=== PATIENT | female | born 1990 | race Caucasian/White ===

== ENCOUNTER 2016-07-08 12:43 | Emergency (ER) | payer BC, MEDICAID ==
[2016-07-08 12:45] VITALS: BMI 22.2
[2016-07-08] MEDS ORDERED: Sodium Chloride 0.9% 1,000 ML IV STA (13:09)
[2016-07-08 13:17] VITALS: BP 105/70; PULSE 73; RESP 19; TEMP 97.6; O2SAT 99
--- NOTE | 2016-07-08 13:31 | ED PDOC ---
Arrival/HPI - General Historian: Patient - History of Present Illness Time/Duration: Prior to Arrival Symptom Onset: Sudden Symptom Course: Unchanged <Gustabo Acosta - Last Filed: 07/08/16 16:30> <Richy Moreno - Last Filed: 07/08/16 21:52> - General Chief Complaint: Dizziness/Lightheaded Time Seen by Provider: 07/08/16 12:51 - History of Present Illness Narrative History of Present Illness (Text): 26 F 9 weeks with no pmh presents with near syncope. Pt states that prior to arrival she was walking with her fiance when she suddenly started to feel very weak, dizzy and blurry vision. She denies passing out, or hitting her head. Denies this ever occurring before. She states that she has been eating and drinking well. Denies any fuentes, f/c/, sob, cp, palpitations, abd pain, n/v/d, urinary changes. (Gustabo Acosta) Past Medical History - Provider Review Nursing Documentation Reviewed: Yes - Infectious Disease Hx of Infectious Diseases: None - Past Medical History Past Medical History: No Previous - Cardiac Hx Cardiac Disorders: No Hx Pacemaker: No - Neurological Hx Paralysis: No - Hematological/Oncological Hx Blood Transfusions: No - Musculoskeletal/Rheumatological Hx Musculoskeletal Disorders: No - Psychiatric Hx Emotional Abuse: No Hx Physical Abuse: No Hx Substance Use: No - Past Surgical History Past Surgical History: No Previous - Surgical History Hx Eye Surgery: Yes (R eye) Other/Comment: 1 vaginal - Anesthesia Hx Anesthesia: Yes Hx Anesthesia Reactions: No Hx Malignant Hyperthermia: No - Suicidal Assessment Feels Threatened In Home Enviroment: No <Gustabo Acosta - Last Filed: 07/08/16 16:30> Family/Social History - Physician Review Nursing Documentation Reviewed: Yes Family/Social History: No Known Family HX Smoking Status: Never Smoked Hx Alcohol Use: No (SOCIAL) Hx Substance Use: No Hx Substance Use Treatment: No <Gustabo Acosta - Last Filed: 07/08/16 16:30> Allergies/Home Meds <Gustabo Acosta - Last Filed: 07/08/16 16:30> <Richy Moreno - Last Filed: 07/08/16 21:52> Allergies/Adverse Reactions: Allergies No Known Allergies Allergy (Verified 07/15/14 07:51) Home Medications: Home Meds Medication Instructions Recorded Confirmed Vit No.126/Iron/Folic 1 each PO DAILY 07/08/16 07/08/16 [Classic Tablet] Review of Systems - Physician Review All systems were reviewed & negative as marked: Yes - Review of Systems Constitutional: Fatigue Eyes: Vision Changes (blurry vision) Respiratory: absent: SOB Cardiovascular: absent: Chest Pain, Palpitations Gastrointestinal: absent: Abdominal Pain Neurological: Dizziness. absent: Headache <Gustabo Acosta - Last Filed: 07/08/16 16:30> Physical Exam Vital Signs Reviewed: Yes Temperature: Afebrile Blood Pressure: Normal Pulse: Regular Respiratory Rate: Normal Appearance: Positive for: Well-Appearing, Non-Toxic, Comfortable Pain Distress: None Mental Status: Positive for: Alert and Oriented X 3 - Systems Exam Head: Present: Atraumatic, Normocephalic Pupils: Present: PERRL Extroacular Muscles: Present: EOMI Conjunctiva: Present: Normal Mouth: Present: Moist Mucous Membranes Neck: Present: Normal Range of Motion Respiratory/Chest: Present: Clear to Auscultation, Good Air Exchange. No: Respiratory Distress, Accessory Muscle Use Cardiovascular: Present: Regular Rate and Rhythm, Normal S1, S2. No: Murmurs Abdomen: Present: Normal Bowel Sounds. No: Tenderness, Distention, Peritoneal Signs Upper Extremity: Present: Normal Inspection. No: Cyanosis, Edema Lower Extremity: Present: Normal Inspection. No: Edema Neurological: Present: GCS=15, CN II-XII Intact, Speech Normal Skin: Present: Warm, Dry, Normal Color. No: Rashes Psychiatric: Present: Alert, Oriented x 3, Normal Insight, Normal Concentration <Gustabo Acosta - Last Filed: 07/08/16 16:30> Medical Decision Making <Gustabo Acosta - Last Filed: 07/08/16 16:30> <Richy Moreno - Last Filed: 07/08/16 21:52> ED Course and Treatment: Impression: 26 F 9 weeks with no pmh presents with near syncope. Differential Diagnosis included but are not limited to: Dehydration vs unlikely vasovagal / cardiac Plan: - CBC, CMP - IVP NS 1L bolus - Reassess and disposition Progress Notes: 07/08/16 13:34 Pt currently asymptomatic. Hemodynamically stable. Resting in bed comfortably. 07/08/16 14:01 Ordered transvaginal US 07/08/16 14:45 EKG Ordered reviewed and independently interpreted the EKG Rate: 69 BPM Rythm: NSR Interpretation: No ST segment elevation or depression, no T wave iinversions, normal intervals. Comparison: none 07/08/16 14:47 Ordered Orthostatic Hypotension 07/08/16 15:35 Orthostatics: Lyin/66, sitting, 119/72, standing 116/68 07/08/16 15:53 Transvaginal US - single live intrauterine gestation of 8 weeks 6 days gestational age. No subchorionic hemorrhage, HR 140, otherwise unremarkable exam. (Gustabo Acosta) 07/08/16 15:43 Patient seen and evaluated with medical officer. Patient reports NO abdominal pain or vaginal bleeding currently. States to me she occasional gets lower abdominal "cramp" but none currently. On exam, no chest pain or shortness of breath. No neuro symptoms. No pleuritic pain. No calf pain. No diaphoresis or hypoxia noted. Patient denies any low back pain. She has reported nausea throughout her early . Serial exams in ED patient has remained neurovascularly intact, no tachycardia. NOT ORTHOSTATIC on re-examination. Suspect possible vagal episode as patient with rapid resolution of symptoms and currently asymptomatic with no motor or sensory deficits, no headache or chest pain or sob. Patient Seen With Resident: In agreement with resident note which contains more details about the patient. Patient was seen and evaluated with resident. Came up with plan and treatment together. (Richy Moreno) - Lab Interpretations Lab Results: 07/08/16 13:20 07/08/16 13:20 Lab Results 07/08/16 14:11: Beta HCG, Quant [id number] H 07/08/16 14:05: Urine Color Yellow, Urine Appearance Clear, Urine pH 6.0, Ur Specific [place] >= 1.030, Urine Protein 30 H, Urine Glucose (UA) Negative, Urine Ketones Negative, Urine Blood Negative, Urine Nitrate Negative, Urine Bilirubin Negative, Urine Urobilinogen 0.2, Ur Leukocyte Esterase Negative, Urine RBC Negative, Urine WBC 1 - 3, Ur Epithelial Cells 3 - 4, Urine Bacteria Small 07/08/16 13:20: Sodium 137, Potassium 4.0, Chloride 104, Carbon Dioxide 24, Anion Gap 13, BUN 8, Creatinine 0.6, Est GFR ( Amer) > 60, Est GFR (Non- Af Amer) > 60, Random Glucose 83, Calcium 9.3, Total Bilirubin 0.5, AST 19, ALT 29, Alkaline Phosphatase 44, Total Protein 8.0, Albumin 4.4, Globulin 3.5, Albumin/Globulin Ratio 1.3 07/08/16 13:20: WBC 8.8 D, RBC 4.06, Hgb 12.0, Hct 34.6 L, MCV 85.2, MCH 29.6, MCHC 34.7, RDW 13.6, Plt Count 301, MPV 9.5, Gran % 78.4 H, Lymph % (Auto) 14.4 L, [place] % (Auto) 6.5 H, Eos % (Auto) 0.5 L, Baso % (Auto) 0.2, Gran # 6.86 H, Lymph # 1.3, Love # 0.6, Eos # 0.0, Baso # 0.02 - RAD Interpretation Radiology Orders: 07/08/16 14:01 OB TRANSVAGINAL [US] Stat - Medication Orders Current Medication Orders: Discontinued Medications Sodium Chloride (Sodium Chloride 0.9%) 1,000 mls @ 999 mls/hr IV .Q1H1M STA Stop: 07/08/16 14:09 Last Admin: 07/08/16 13:30 Dose: 999 mls/hr - PA / WEATHERIZATION INSTALLER / Resident Statement WES has reviewed & agrees with the documentation as recorded. WES has examined the patient and agrees with the treatment plan. <Richy Moreno - Last Filed: 07/08/16 21:52> Disposition/Present on Arrival - Present on Arrival Any Indicators Present on Arrival: No History of DVT/PE: No History of Uncontrolled Diabetes: No Urinary Catheter: No History of Decub. Ulcer: No History Surgical Site Infection Following: None - Disposition Have Diagnosis and Disposition been Completed?: Yes Disposition Time: 15:55 Patient Plan: Discharge <Gustabo Acosta - Last Filed: 07/08/16 16:30> <Richy Moreno - Last Filed: 07/08/16 21:52> - Disposition Diagnosis: Near syncope Disposition: HOME/ ROUTINE Condition: IMPROVED Additional Instructions: Margot Oropeza, thank you for letting us take care of you today. Your provider was Dr Moreno. You were treated for pre syncope. The emergency medical care you received today was directed at your acute symptoms. If you were prescribed any medication, please fill it and take as directed. It may take several days for your symptoms to resolve. Return to the Emergency Department if your symptoms worsen, do not improve, or if you have any other problems. Please contact your doctor or call one of the physicians/clinics you have been referred to that are listed on the Patient Visit Information form that is included in your discharge packet. Bring any paperwork you were given at discharge with you along with any medications you are taking to your follow up visit. Our treatment cannot replace ongoing medical care by a primary care provider (PCP) outside of the emergency department. Thank you for allowing the [facility] team to be part of your care today. Please follow up with your PMD and ADMISSIONS ASSISTANT with in next 1-2 days. Continue taking your pre vitamins. If your symptom recur or worsen come back to the ED.
[2016-07-08 13:34] LABS: ADD MANUAL DIFF? NO
[2016-07-08 13:41] LABS: BASO # 0.02 K/mm3 (0.0-2.0); BASO % 0.2 % (0.0-3.0); EOS % 0.5 % (1.5-5.0); GRAN # 6.86 (1.4-6.5); GRAN % 78.4 % (50.0-68.0); HEMATOCRIT 34.6 % (36.0-48.0); LYMPH # 1.3 (1.2-3.4); LYMPH % 14.4 % (22.0-35.0); MEAN CELL VOLUME 85.2 fL (80.0-105.0); MEAN CORPUSCULAR HEMOGLOBIN 29.6 pg (25.0-35.0); MEAN CORPUSCULAR HGB CONC 34.7 g/dl (31.0-37.0); MEAN PLATELET VOLUME 9.5 fl (7.0-11.0); MONO # 0.6 (0.1-0.6); MONO % 6.5 % (1.0-6.0); PLATELET COUNT 301 10^3/uL (120.0-450.0); RED CELL DISTRIBUTION WIDTH 13.6 % (11.5-14.5); WHITE BLOOD COUNT 8.8 10^3/ul (4.5-11.0)
[2016-07-08 13:46] LABS: ALB/GLOB RATIO 1.3 (1.1-1.8); ALKALINE PHOSPHATASE 44 U/L (38-133); ALT/SGPT 29 U/L (7-56); AST/SGOT 19 U/L (15-39); BILIRUBIN,TOTAL 0.5 mg/dL (0.2-1.3); BLOOD UREA NITROGEN 8 mg/dL (7-21); CALCIUM 9.3 mg/dL (8.4-10.5); CARBON DIOXIDE 24 mmol/L (21-33); CHLORIDE 104 mmol/L (98-107); GFR AFRICAN-AMERICAN > 60; GLUCOSE,RANDOM 83 mg/dL (70-110); SODIUM 137 mmol/L (132-148)
[2016-07-08 14:18] LABS: URINE BILIRUBIN NEGATIVE (NEGATIVE); URINE BLOOD NEGATIVE (NEGATIVE); URINE GLUCOSE (UA) NEGATIVE (NEGATIVE); URINE KETONE NEGATIVE (NEGATIVE); URINE LEUKOCYTE ESTERASE NEGATIVE Leu/uL (NEGATIVE); URINE PROTEIN 30 mg/dL (<30 mg/dL); URINE UROBILINOGEN 0.2 E.U./dL (<1 E.U./dL)
[2016-07-08 14:22] LABS: URINE APPEARANCE CLEAR (CLEAR); URINE COLOR YELLOW (YELLOW)
[2016-07-08 14:30] LABS: URINE BACTERIA SMALL (NEG); URINE RBC NEGATIVE /hpf (0-2)
--- NOTE | 2016-07-08 15:42 | US ---
PROCEDURE: OB Pelvic Ultrasound HISTORY: COMPARISON: None available. FINDINGS: UTERUS: Single Live intrauterine gestation. CRL equivalent to 9 weeks 3 days gestatioin Gestational sac diameter equivalent to 8 weeks 1 day gestation age (Ultrasound estimated): 8 weeks 6 days Date of delivery (Ultrasound estimated) : 02/11/2017 Heart rate: 140 bpm. Ksenia-gestational hemorrhage: None. Uterus measures 9.8 x 6.1 x 7.3 cm. No mass CERVIX: Long and closed. No cervical abnormality seen. RIGHT OVARY: Not visualized LEFT OVARY: Measures 2.3 x 1.9 x 1.9 cm. No mass. Normal flow. FREE FLUID: None. OTHER FINDINGS: None. IMPRESSION: Single live intrauterine gestation of approximately 8 weeks 6 days gestational age. No subchorionic hemorrhage. heart rate 140. Otherwise unremarkable examination.
--- NOTE | 2016-07-09 01:30 | CARD ---
APPROVED REPORT EKG Measurement Heart [id number] <Conclusion> Normal sinus rhythm Normal ECG
== END 2016-07-08 16:11 | disposition home or self-care (01) ==
LOC: ED 12:43
DX: O26.91 Pregnancy related conditions, unspecified, first trimester (principal); Z3A.09 9 weeks gestation of pregnancy; R55 Syncope and collapse
CPT/HCPCS: 76817; 80053; 81001; 84702; 85025; 93005; 96360; 99283; J7040

== ENCOUNTER 2016-10-16 14:41 | Emergency (ER) | payer BC, MEDICAID ==
[2016-10-16 15:02] VITALS: BMI 24.4
[2016-10-16 15:05] VITALS: TEMP 98.4
[2016-10-16 16:58] LABS: BASO # 0.01 K/mm3 (0.0-2.0); BASO % 0.1 % (0.0-3.0); EOS # 0.1 (0.0-0.7); EOS % 0.7 % (1.5-5.0); GRAN # 6.11 (1.4-6.5); GRAN % 73.1 % (50.0-68.0); HEMATOCRIT 28.8 % (36.0-48.0); LYMPH # 1.5 (1.2-3.4); MEAN CELL VOLUME 85.2 fl (80.0-105.0); MEAN CORPUSCULAR HEMOGLOBIN 27.8 pg (25.0-35.0); MEAN CORPUSCULAR HGB CONC 32.6 g/dl (31.0-37.0); MEAN PLATELET VOLUME 9.1 fl (7.0-11.0); MONO # 0.7 (0.1-0.6); MONO % 8.1 % (1.0-6.0); RED CELL DISTRIBUTION WIDTH 12.9 % (11.5-14.5); WHITE BLOOD COUNT 8.4 10^3/ul (4.5-11.0)
[2016-10-16 17:04] LABS: URINE BILIRUBIN NEGATIVE (NEGATIVE); URINE BLOOD NEGATIVE (NEGATIVE); URINE GLUCOSE (UA) NEGATIVE (NEGATIVE); URINE KETONE NEGATIVE (NEGATIVE); URINE LEUKOCYTE ESTERASE NEGATIVE Leu/uL (NEGATIVE); URINE PROTEIN TRACE mg/dL (<30 mg/dL)
[2016-10-16 17:07] LABS: ALB/GLOB RATIO 1.1 (1.1-1.8); ALKALINE PHOSPHATASE 66 U/L (38-133); ALT/SGPT 27 U/L (7-56); AST/SGOT 21 U/L (15-39); BILIRUBIN,TOTAL 0.3 mg/dL (0.2-1.3); BLOOD UREA NITROGEN 8 mg/dL (7-21); CALCIUM 8.8 mg/dL (8.4-10.5); CARBON DIOXIDE 23 mmol/L (21-33); CHLORIDE 106 mmol/L (98-107); GFR AFRICAN-AMERICAN > 60; GLUCOSE,RANDOM 79 mg/dL (70-110); POTASSIUM 4.4 mmol/L (3.6-5.0); SODIUM 137 mmol/L (132-148); TOTAL PROTEIN 6.8 g/dL (5.8-8.3)
[2016-10-16 17:09] LABS: URINE APPEARANCE CLEAR (CLEAR); URINE COLOR YELLOW (YELLOW)
[2016-10-16 17:10] LABS: URINE RBC 0 - 2 /hpf (0-2); URINE WBC 0 - 2 /hpf (0-6)
[2016-10-16 17:11] LABS: URINE BACTERIA FEW (NEG)
--- NOTE | 2016-10-16 17:59 | US ---
PROCEDURE: Obstetrical ultrasound examination HISTORY: 6 months , 3 days abd pain COMPARISON: 07/08/2016 TECHNIQUE: Transabdominal FINDINGS: Single live intrauterine gestation in cephalic presentation. The heart rate is 151 beats per minute. A grossly normal quantity of amniotic fluid is noted. The amniotic fluid index is 10.4 cm. A normal posterior placenta is identified. There is no evidence of placenta previa. The cervix is closed and measures 5.5 cm in length. biometry yields an ultrasound age of 24 weeks 4 days. The LEXI by ultrasound is 02/01/2017. The EFW is 716.20 g. Limited review of anatomy demonstrates fluid distending the stomach and urinary bladder. The kidneys were not demonstrated. A three-vessel umbilical cord is identified. The anterior abdominal wall is intact. IMPRESSION: Single live intrauterine gestation of approximately 24 weeks 4 days gestational age. The EFW 716.20 g. normal limited anatomic evaluation. Normal amniotic fluid volume. Posterior placenta without evidence of placenta previa. Cervix long and closed. heart rate 151 beats per minute.
--- NOTE | 2016-10-16 18:11 | ED PDOC ---
Addendum entered and electronically signed by Shalya Lopez PA 10/30/16 14 :36: Addendum Addendum: 10/30/16 14:36 Certified letter sent on 10/23/16 Addendum entered and electronically signed by Dorothy Thompson PA-C 10/18/16 16:53 : Addendum Addendum: 10/18/16 16:52 I left a message on her voice mail to call us back kena Original Note: Arrival/HPI - General Chief Complaint: Abdominal Pain Time Seen by Provider: 10/16/16 15:37 Historian: Patient - History of Present Illness Narrative History of Present Illness (Text): 10/16/16 18:08 26-year-old female approximately 6 weeks presents today with a three- day history of worsening left-sided abdominal pain. The patient states the pain is greatest along the left side of the abdomen but also is present across the upper abdomen. She is complaining of nausea no vomiting or diarrhea. No chest pain or shortness of breath. She denies any urinary symptoms. Patient states she is a . Denies dizziness or weakness. Denies vaginal bleeding. Denies leakage of fluids. No other complaints Past Medical History - Provider Review Nursing Documentation Reviewed: Yes - Travel History Have you recently traveled outside [place] w/in the past 3 mons?: No - Infectious Disease Hx of Infectious Diseases: None - Tetanus Immunization Tetanus Immunization: Unknown - Past Medical History Past Medical History: No Previous - Cardiac Hx Cardiac Disorders: No Hx Pacemaker: No - Neurological Hx Paralysis: No - Hematological/Oncological Hx Blood Transfusions: No - Musculoskeletal/Rheumatological Hx Musculoskeletal Disorders: No - Psychiatric Hx Emotional Abuse: No Hx Physical Abuse: No Hx Substance Use: No - Past Surgical History Past Surgical History: No Previous - Surgical History Hx Eye Surgery: Yes (R eye) Other/Comment: 1 vaginal . hemorrhoid sx - Anesthesia Hx Anesthesia: Yes Hx Anesthesia Reactions: No Hx Malignant Hyperthermia: No - Suicidal Assessment Feels Threatened In Home Enviroment: No Family/Social History - Physician Review Nursing Documentation Reviewed: Yes Family/Social History: Unknown Family HX Smoking Status: Never Smoked Hx Alcohol Use: No (SOCIAL) Hx Substance Use: No Hx Substance Use Treatment: No Allergies/Home Meds Allergies/Adverse Reactions: Allergies No Known Allergies Allergy (Verified 05/28/15 07:51) Home Medications: Home Meds Medication Instructions Recorded Confirmed Vit No.126/Iron/Folic 1 each PO DAILY 07/08/16 10/16/16 [Classic Tablet] Review of Systems - Review of Systems Constitutional: absent: Fatigue, Fevers Respiratory: absent: SOB, Cough Cardiovascular: absent: Chest Pain, Palpitations, Syncope Gastrointestinal: Abdominal Pain, Nausea. absent: Constipation, Diarrhea, Vomiting, Appetite Changes, Hematemesis, Anorexia Genitourinary Female: absent: Dysuria, Frequency, Hematuria, Urine Output Changes, Vaginal Bleeding, Vaginal Discharge Musculoskeletal: absent: Arthralgias, Back Pain, Neck Pain Skin: absent: Rash, Pruritis Neurological: absent: Headache, Dizziness Physical Exam Vital Signs Reviewed: Yes Vital Signs Temp Pulse Resp BP Pulse Ox 10/16/16 17:39 81 18 113/65 98 10/16/16 16:09 89 18 111/67 98 10/16/16 15:04 98.4 F 90 18 109/65 98 Temperature: Afebrile Blood Pressure: Normal Pulse: Regular Respiratory Rate: Normal Appearance: Positive for: Well-Appearing, Non-Toxic, Comfortable Pain Distress: None Mental Status: Positive for: Alert and Oriented X 3 - Systems Exam Head: Present: Atraumatic Mouth: Present: Moist Mucous Membranes Neck: Present: Normal Range of Motion Respiratory/Chest: Present: Clear to Auscultation, Good Air Exchange. No: Respiratory Distress, Accessory Muscle Use Cardiovascular: Present: Regular Rate and Rhythm, Normal S1, S2. No: Murmurs Abdomen: Present: Tenderness (+ luq, llq and epigastric tenderness), Normal Bowel Sounds. No: Distention, Peritoneal Signs, Rebound, Guarding, [place]'s [place] Tender Back: Present: Normal Inspection. No: Midline Tenderness, Paraspinal Tenderness Upper Extremity: Present: Normal Inspection Lower Extremity: Present: Normal Inspection Neurological: Present: GCS=15, Speech Normal Skin: Present: Warm, Dry, Normal Color. No: Rashes Psychiatric: Present: Alert, Oriented x 3 Medical Decision Making ED Course and Treatment: 10/16/16 18:11 26-year-old female presents today with left-sided abdominal pain and epigastric abdominal pain that started 3 days ago. Patient is cbc; hgb; 9.4 cmp; wnl lipase; wnl UA: wnl US:FINDINGS: Single live intrauterine gestation in cephalic presentation. The heart rate is 151 beats per minute. A grossly normal quantity of amniotic fluid is noted. The amniotic fluid index is 10.4 cm. A normal posterior placenta is identified. There is no evidence of placenta previa. The cervix is closed and measures 5.5 cm in length. biometry yields an ultrasound age of 24 weeks 4 days. The LEXI by ultrasound is 02/01/2017. The EFW is 716.20 g. Limited review of anatomy demonstrates fluid distending the stomach and urinary bladder. The kidneys were not demonstrated. A three-vessel umbilical cord is identified. The anterior abdominal wall is intact. IMPRESSION: Single live intrauterine gestation of approximately 24 weeks 4 days gestational age. The EFW 716.20 g. normal limited anatomic evaluation. Normal amniotic fluid volume. Posterior placenta without evidence of placenta previa. Cervix long and closed. heart rate 151 beats per minute. offered patient transfer to [facility] for further evaluation of abdominal pain in . pt states she lives right around the corner and will just have her boyfriend drive her to the hospital. advised patient of risk of disability or worsening of symptoms including labor, loss of fetus. Patient has been advised to not leave the emergency room but has decided to go AGAINST MEDICAL ADVICE. The patient possesses capacity to make decisions and has voiced understanding to all my warnings of potential worsening of the condition for which medical care was sought. I have discussed all known and potential risks and consequences to the patient leaving AGAINST MEDICAL ADVICE. Patient is leaving against medical advise. AMA form signed. witness by DAYANARA stacy Advised patient that she should be transferred to [facility] for further GLOBAL COMPENSATION MANAGER evaluation of her abdominal pain and . Discussed in depth the risks and benefits of signing out against advice. Patient does not want to be transferred via ambulance. impression; abdominal pain in AMA form signed. return if you wish to continue your care. return immediately if symptoms worsen,persist or if new symptoms develop. - Lab Interpretations Lab Results: 10/16/16 16:50 10/16/16 16:50 Lab Results 10/16/16 16:50: Lipase 108 10/16/16 16:50: WBC 8.4, RBC 3.38 L, Hgb 9.4 L, Hct 28.8 L, MCV 85.2, MCH 27.8, MCHC 32.6, RDW 12.9, Plt Count 317, MPV 9.1, Gran % 73.1 H, Lymph % (Auto) 18.0 L, [place] % (Auto) 8.1 H, Eos % (Auto) 0.7 L, Baso % (Auto) 0.1, Gran # 6.11, Lymph # 1.5, [place] # 0.7 H, Eos # 0.1, Baso # 0.01 10/16/16 16:50: Sodium 137, Potassium 4.4, Chloride 106, Carbon Dioxide 23, Anion Gap 12, BUN 8, Creatinine 0.5, Est GFR ( Amer) > 60, Est GFR (Non- Af Amer) > 60, Random Glucose 79, Calcium 8.8, Total Bilirubin 0.3, AST 21, ALT 27, Alkaline Phosphatase 66, Total Protein 6.8, Albumin 3.6, Globulin 3.2, Albumin/Globulin Ratio 1.1 10/16/16 16:38: Urine Color Yellow, Urine Appearance Clear, Urine pH 6.0, Ur Specific [place] >= 1.030, Urine Protein Trace H, Urine Glucose (UA) Negative, Urine Ketones Negative, Urine Blood Negative, Urine Nitrate Negative, Urine Bilirubin Negative, Urine Urobilinogen 1.0 H, Ur Leukocyte Esterase Negative, Urine RBC 0 - 2, Urine WBC 0 - 2, Ur Epithelial Cells 6 - 8, Urine Bacteria Few - RAD Interpretation Radiology Orders: 10/16/16 15:37 AGE [US] Stat Disposition/Present on Arrival - Present on Arrival Any Indicators Present on Arrival: No History of DVT/PE: No History of Uncontrolled Diabetes: No Urinary Catheter: No History of Decub. Ulcer: No History Surgical Site Infection Following: None - Disposition Have Diagnosis and Disposition been Completed?: Yes Diagnosis: Abdominal pain affecting Disposition: AGAINST MEDICAL ADVICE Disposition Time: 18:09 Patient Plan: Other (AMA) Patient Problems: Current Active Problems Problem Status Onset Abdominal pain affecting Acute Condition: UNKNOWN Discharge Instructions (ExitCare): Abdominal Pain in (ED) Additional Instructions: return if you wish to continue your care follow up with the harvest supervisor KENA. Referrals: Catherine Gray MD [Primary Care Provider] - Follow up with primary Forms: [employer] (Spanish)
[2016-10-16 18:40] VITALS: BP 115/70; PULSE 78; RESP 17; O2SAT 100
== END 2016-10-16 18:05 | disposition left against medical advice (07) ==
LOC: ED 14:41
DX: O26.892 Other specified pregnancy related conditions, second trimester (principal); R10.9 Unspecified abdominal pain; Z3A.24 24 weeks gestation of pregnancy